=== PATIENT | male | born 1995 | race Caucasian/White ===

== ENCOUNTER 2021-06-27 15:22 | Emergency (ER) | payer OTHER ==
[~2021-06-27] VITALS: Ht 182.9 cm; Wt 86.4 kg
[2021-06-27 15:33] VITALS: BP 129/72
[2021-06-27] MEDS ORDERED: HYDR-3965 PO (16:29)
== END 2021-06-27 16:38 | disposition home or self-care (01) ==
LOC: ER 15:23
DX: S42.021A Displaced fracture of shaft of right clavicle, initial encounter for closed fracture (principal); S30.811A Abrasion of abdominal wall, initial encounter; V19.9XXA Pedal cyclist (driver) (passenger) injured in unspecified traffic accident, initial encounter; Y93.89 Activity, other specified; Y92.89 Other specified places as the place of occurrence of the external cause; Y99.8 Other external cause status
CPT/HCPCS: 71045; 73030; 99284